=== PATIENT | female | born 1995 | race American Indian/Alaskan Native ===

== ENCOUNTER 2019-11-16 23:41 | Emergency (ER) | payer MEDICAID ==
[2019-11-17] MEDS ORDERED: Ketorolac 60 MG/2 ML SDV IM ONE (00:01)
--- NOTE | 2019-11-17 00:07 | EDM.PDOC ---
ED HPI GENERAL MEDICAL PROBLEM - General Chief Complaint: Chest Pain Stated Complaint: CHEST PAINS Time Seen by Provider: 11/16/19 23:50 Source of Information: Reports: Patient, Old Records, RN History Limitations: Reports: No Limitations - History of Present Illness INITIAL COMMENTS - FREE TEXT/NARRATIVE: 24 yo 1/4 ppd smoking NA female presents with onset this evening of sharp substernal chest pain. No SOB. Pain is less with shallow breathing. No calf pain or fever or cough. No hx of the same. No self tx prior to arrival. Onset: Today Onset Date: 11/17/19 Onset Time: 23:00 Duration: Hour(s): (1), Intermittent Location: Reports: Chest Quality: Reports: Sharp, Stabbing Severity: Moderate Improves with: Reports: Other (shallow breathing) Worsens with: Reports: Other (deep inspiration) Context: Reports: Other (See HPI) Associated Symptoms: Reports: Chest Pain (sharp, pleuritic) Treatments [employer]: Reports: Other (see below) (none) Chest Pain Score (Numeric/FACES): 8 - Related Data Allergies Allergy/AdvReac Type Severity Reaction Status Date / Time escitalopram [From Lexapro] Allergy Other Verified 11/16/19 23:55 Home Meds: Home Meds ALPRAZolam [Alprazolam] 1 mg PO BID PRN 11/16/19 [History] Buprenorphine HCl/Naloxone HCl [Suboxone 12 mg-3 mg Sl Film] 1 strip TOP DAILY 11/16/19 [History] Gabapentin [Neurontin] 1,200 mg PO TID 11/16/19 [History] buPROPion HCl [Wellbutrin SR] 150 mg PO BID 11/16/19 [History] traZODone 150 mg PO DAILY 11/16/19 [History] ED ROS GENERAL - Review of Systems Review Of Systems: See Below Constitutional: Reports: No Symptoms HEENT: Reports: No Symptoms Respiratory: Reports: Pleuritic Chest Pain. Denies: Shortness of Breath, Wheezing, Cough, Sputum, Hemoptysis Cardiovascular: Reports: Chest Pain (sharp, pleuritic) GI/Abdominal: Reports: No Symptoms : Reports: No Symptoms Musculoskeletal: Reports: No Symptoms Skin: Reports: No Symptoms Neurological: Reports: No Symptoms Psychiatric: Reports: No Symptoms ED EXAM, GENERAL - Physical Exam Exam: See Below Exam Limited By: No Limitations General Appearance: Alert, WD/WN, Mild Distress Eye Exam: Bilateral Eye: Normal Inspection Ears: Normal External Exam, Normal Canal, Hearing Grossly Normal Ear Exam: Bilateral Ear: Auricle Normal, Canal Normal Nose: Normal Inspection, No Blood Throat/Mouth: Normal Inspection, Normal Lips, Normal Oropharynx, Normal Voice, No Airway Compromise Head: Atraumatic, Normocephalic Neck: Normal Inspection Respiratory/Chest: No Respiratory Distress, Lungs Clear, Normal Breath Sounds, No Accessory Muscle Use, Chest Non-Tender. No: Decreased Breath Sounds, Wheezing Cardiovascular: Regular Rate, Rhythm, No Edema GI/Abdominal: Normal Bowel Sounds, Soft, Non-Tender, No Distention Back Exam: Normal Inspection. No: CVA Tenderness (R), CVA Tenderness (L) Extremities: Normal Inspection, Normal Range of Motion, Non-Tender, No Pedal Edema Neurological: Alert, Oriented, CN II-XII Intact, Normal Cognition, No Motor/ Sensory Deficits Psychiatric: Normal Affect, Anxious Skin Exam: Warm, Dry, Intact, Normal Color, No Rash EKG INTERPRETATION EKG Date: 11/17/19 Time: 23:50 Rhythm: NSR Rate (Beats/Min): 76 [place]: Normal P-Wave: Present QRS: Normal ST-T: Normal QT: Normal Comparison: NA - No Prior EKG Course - Vital Signs Last Recorded V/S: Last Vital Signs Temp 36.6 C 11/16/19 23:44 Pulse 73 11/17/19 00:11 Resp 14 11/17/19 00:11 BP 132/87 11/17/19 00:11 Pulse Ox 99 11/17/19 00:11 - Orders/Labs/Meds Orders: Active Orders 24 hr Category Date Time Status Cardiac Monitoring [RC] .As Directed Care 11/16/19 23:44 Active EKG Documentation Completion [RC] ASDIRECTED Care 11/16/19 23:44 Active EKG 12 Lead [EK] Routine Ther 11/16/19 23:44 Ordered Meds: Medications Discontinued Medications Generic Name Dose Route Start Last Admin Trade Name Freq PRN Reason Stop Dose Admin Ketorolac Tromethamine 60 mg 11/17/19 00:01 11/17/19 00:15 Toradol IM 11/17/19 00:02 60 mg ONETIME ONE Administration - Re-Assessments/Exams Free Text/Narrative Re-Assessment/Exam: 11/17/19 00:39 pain gone now after Toradol Departure - Departure Time of Disposition: 00:45 Disposition: Home, Self-Care 01 Condition: Good Clinical Impression: Pleurisy Instructions: Pleurisy, [id number] Referrals: PCP,None [Primary Care Provider] - Forms: ED Department Discharge Additional Instructions: Starting about 5 1/2 hrs from now take either ibuprofen 400-600 mg every 6 hrs with food OR naproxen sodium 1-2 every 8-12 hrs with food. Recheck as needed. Avoid smoking if possible. Sepsis Event Note - Focused Exam Vital Signs: Vital Signs Temp Pulse Resp BP Pulse Ox 11/17/19 00:11 73 14 132/87 99 11/16/19 23:44 36.6 C 73 16 144/83 H 98 Date Exam was Performed: 11/17/19 Time Exam was Performed: 00:39 - My Orders Last 24 Hours: My Active Orders 11/16/19 23:44 Cardiac Monitoring [RC] .As Directed EKG Documentation Completion [RC] ASDIRECTED EKG 12 Lead [EK] Routine - Assessment/Plan Last 24 Hours: My Active Orders 11/16/19 23:44 Cardiac Monitoring [RC] .As Directed EKG Documentation Completion [RC] ASDIRECTED EKG 12 Lead [EK] Routine
== END 2019-11-17 01:08 | disposition home or self-care (01) ==
LOC: JP.ED 23:41
DX: R09.1 Pleurisy (principal); Z88.8 Allergy status to other drugs, medicaments and biological substances
CPT/HCPCS: 93005; 96372; 99283; 99284; J1885; 93010